=== PATIENT | female | born 1990 | race Caucasian/White ===

== ENCOUNTER 2019-09-25 16:24 | Emergency (ER) | payer BC, MEDICAID ==
[~2019-09-25] VITALS: Ht 165.1 cm; Wt 66.0 kg
[~2019-09-25 16:24] MED LIST: CEPH-571 PO; HYDR-4383 PO; ZOLP5TAB8 PO
[2019-09-25 16:37] VITALS: BP 109/49
[2019-09-25 16:56] LABS: CLARITY,URINE SLIGHTLY CLOUDY (Clear); COLOR,URINE YELLOW (Yellow); GLUCOSE, URINE NEGATIVE (Neg); KETONES,URINE NEGATIVE (Neg); LEUKOCYTE ESTERASE ,URINE SMALL (Neg); NITRITES, URINE NEGATIVE (Neg); OCCULT BLOOD,URINE NEGATIVE (Neg); PROTEIN,URINE NEGATIVE (Neg); UROBILINOGEN,URINE 0.2 E.U/dL (0.2-1.0)
[2019-09-25 16:57] LABS: UA COLLECTION TYPE CLN CATCH MIDSTREAM; URINE HCG NEGATIVE (NEG)
[2019-09-25 17:06] LABS: BACTERIA,URINE FEW /HPF (Neg); MUCUS STRANDS MODERATE /LPF (Neg); RBC,URINE NONE SEEN /HPF (0-2); SQUAMOUS EPITHELIAL CELL,UR MODERATE /LPF (FEW)
[2019-09-25 17:07] LABS: WBC CLUMPS,URINE FEW /HPF (NEGATIVE)
[2019-09-25] MEDS ORDERED: PHEN-716 PO (17:28)
[2019-09-25] MEDS ORDERED: IBUP-1984 PO (17:28)
[2019-09-25] MEDS ORDERED: CEPH250T PO (17:28)
== END 2019-09-25 17:43 | disposition home or self-care (01) ==
LOC: ER 16:25
DX: N39.0 Urinary tract infection, site not specified (principal); M54.5 Low back pain; F12.90 Cannabis use, unspecified, uncomplicated; F15.90 Other stimulant use, unspecified, uncomplicated; F11.90 Opioid use, unspecified, uncomplicated; Z56.0 Unemployment, unspecified; Z91.040 Latex allergy status
CPT/HCPCS: 81001; 81025; 87077; 87088; 87186; 99283

== ENCOUNTER 2021-05-14 11:14 | Emergency (ER) | payer BC, MEDICAID ==
[~2021-05-14] VITALS: Ht 165.1 cm; Wt 67.3 kg
[~2021-05-14 11:14] MED LIST changes: +PHEN-716 PO
[2021-05-14 11:27] VITALS: BP 118/64
[2021-05-14] MEDS ORDERED: TETanus/Pertussis (Acell)/Diphther VAC/PF (Tdap-Adult) 0.5ml syringe IMVAC ONE (13:15)
[2021-05-14] MEDS ORDERED: SULF1TAB49 PO (13:16)
== END 2021-05-14 13:49 | disposition home or self-care (01) ==
LOC: ER 11:15
DX: S89.91XA Unspecified injury of right lower leg, initial encounter (principal); F32.9 Major depressive disorder, single episode, unspecified; F15.10 Other stimulant abuse, uncomplicated; F12.10 Cannabis abuse, uncomplicated; Z56.0 Unemployment, unspecified
CPT/HCPCS: 73564; 90471; 90715; 99283

== ENCOUNTER 2021-07-18 10:37 | Emergency (ER) | payer MEDICAID ==
[~2021-07-18] VITALS: Ht 165.1 cm; Wt 70.5 kg
[~2021-07-18 10:37] MED LIST changes: +LIDOcaine 1% W/epiNEPHrine 1:100,000 20ml vial ONE
[2021-07-18 10:57] VITALS: BP 105/53
== END 2021-07-18 15:04 | disposition home or self-care (01) ==
LOC: ER 10:37
DX: S61.412A Laceration without foreign body of left hand, initial encounter (principal); R07.89 Other chest pain; R43.8 Other disturbances of smell and taste; R05 Cough; R06.02 Shortness of breath; F32.9 Major depressive disorder, single episode, unspecified; F12.90 Cannabis use, unspecified, uncomplicated; F15.90 Other stimulant use, unspecified, uncomplicated; F11.90 Opioid use, unspecified, uncomplicated; Z56.0 Unemployment, unspecified; X58.XXXA Exposure to other specified factors, initial encounter; Y93.89 Activity, other specified; Y92.89 Other specified places as the place of occurrence of the external cause; Y99.8 Other external cause status
CPT/HCPCS: 12002; 99282